=== PATIENT | male | born 1945 | race Caucasian/White ===

== ENCOUNTER 2019-04-01 00:53 | Inpatient (IN) | payer MEDICARE, OTHER ==
[2019-04-01 01:36] LABS: ADD MAN DIFF? NO
[2019-04-01] MEDS: SOD CHLORIDE 0.9% 500 ML IV (01:37)
[2019-04-01] MEDS: morphine 4 MG/ML VIAL IV (01:37)
[2019-04-01 01:38] LABS: BASOPHILS % 0.2 % (0.0-2.0); EOSINOPHILS # 0.2 10^3/ul (0.0-0.5); EOSINOPHILS % 1.2 % (0.0-7.0); HEMATOCRIT 46.5 % (42.0-52.0); HEMOGLOBIN 15.3 g/dl (14.0-18.0); LYMPHOCYTES # 1.2 10^3/ul (0.8-2.9); LYMPHOCYTES % 9.7 % (15.0-51.0); MEAN CORPUSCULAR HEMOGLOBIN 29.1 pg (29.0-33.0); MEAN CORPUSCULAR HGB CONC 32.9 g/dl (32.0-37.0); MEAN CORPUSCULAR VOLUME 88.4 fl (82.0-101.0); MEAN PLATELET VOLUME 10.1 fl (7.4-10.4); MONOCYTE # 0.5 10^3/ul (0.3-0.9); MONOCYTES % 4.2 % (0.0-11.0); NEUTROPHIL # 10.4 10^3/ul (1.6-7.5); NEUTROPHILS % 84.2 % (39.0-77.0); PLATELET COUNT 246 10^3/UL (140-415); RED BLOOD COUNT 5.26 10^6/ul (4.70-6.10); RED CELL DISTRIBUTION WIDTH 13.9 % (11.5-14.5)
[2019-04-01 01:38] LABS: WHITE BLOOD COUNT 12.3 10^3/ul (4.8-10.8)
[2019-04-01 01:58] LABS: INR 0.85; PROTIME 11.7 Sec (11.9-14.9); PT RATIO 0.9
[2019-04-01 02:16] LABS: ALANINE AMINOTRANSFERASE 33 IU/L (13-69); ALBUMIN 4.5 g/dl (3.3-4.9); ALBUMIN/GLOBULIN RATIO 1.12; ALKALINE PHOSPHATASE 109 IU/L (42-121); ANION GAP 10 (5-13); ASPARTATE AMINO TRANSFERASE 29 IU/L (15-46); BILIRUBIN,INDIRECT 0.9 mg/dl (0-1.1); BILIRUBIN,TOTAL 0.9 mg/dl (0.2-1.3); BLOOD UREA NITROGEN 25 mg/dl (7-20); CARBON DIOXIDE 29 mmol/L (21-31); CHLORIDE 102 mmol/L (97-110); CREATININE 1.84 mg/dl (0.61-1.24); GLUCOSE 144 mg/dl (70-220); LIPASE 74 U/L (23-300); POTASSIUM 4.5 mmol/L (3.5-5.1); SODIUM 141 mmol/L (135-144); TOTAL PROTEIN 8.5 g/dl (6.1-8.1)
[2019-04-01 02:28] LABS: TROPONIN-I < 0.012 ng/ml (0.000-0.120)
[2019-04-01] MEDS: METOCLOPRAMIDE 10 MG INJ IV (03:10)
[2019-04-01] MEDS ORDERED: ALBUTEROL/IPRATROPIUM (NEB) 3 ML AMP HHN (05:30)
[2019-04-01] MEDS ORDERED: NACL 0.9% 3 ML SYG IV (05:30)
[2019-04-01] MEDS ORDERED: ONDANSETRON 4 MG INJ IV (05:30)
[2019-04-01] MEDS: DEXTROSE 5%-0.45% NACL 1,000 ML IV (05:45)
[2019-04-01] MEDS: morphine 2 MG INJ IV (05:46)
[2019-04-01] MEDS: FAMOTIDINE 20 MG INJ IV (08:52)
[2019-04-01 09:24] LABS: ADD UMIC NO; UR ASCORBIC ACID NEGATIVE (NEGATIVE); UR BILIRUBIN (Dip) NEGATIVE (NEGATIVE); UR BLOOD (Dip) NEGATIVE (NEGATIVE); UR CLARITY CLEAR (CLEAR); UR COLOR YELLOW (YELLOW); UR GLUCOSE (Dip) NEGATIVE (NEGATIVE); UR KETONES (Dip) NEGATIVE (NEGATIVE); UR LEUKOCYTE ESTERASE (Dip) NEGATIVE Leu/ul (NEGATIVE); UR NITRITE (Dip) NEGATIVE (NEGATIVE); UR SPECIFIC GRAVITY (Dip) 1.015 (1.003-1.030); UR TOTAL PROTEIN (Dip) NEGATIVE (NEGATIVE); UR UROBILINOGEN (Dip) NEGATIVE (NEGATIVE)
[2019-04-01 10:42] LABS: LACTIC ACID 1.6 mmol/L (0.5-2.0)
[2019-04-01] MEDS: PANTOPRAZOLE 40 MG INJ IV ×2 (10:46→16:02)
[2019-04-01] MEDS: IOHEXOL 300MG/ML 150 ML BTL (13:36)
[2019-04-01] MEDS ORDERED: PANTOPRAZOLE IV 80 MG in SOD CHLORIDE 0.9% 100 ML IVPB (15:30)
[2019-04-01] MEDS: SOD CHLORIDE 0.9% 1,000 ML IV (16:02)
[2019-04-01] MEDS: PANTOPRAZOLE IV 80 MG in SOD CHLORIDE 0.9% 100 ML IV (16:30)
[2019-04-01 17:54] LABS: HEMATOCRIT 46.7 % (42.0-52.0); HEMOGLOBIN 15.3 g/dl (14.0-18.0)
[2019-04-01] MEDS ORDERED: FAMOTIDINE 20 MG INJ IV (21:00)
[2019-04-02] MEDS: LORAZEPAM 2 MG INJ IV (00:42)
[2019-04-02 01:18] LABS: HEMATOCRIT 43.7 % (42.0-52.0)
[2019-04-02] MEDS: SOD CHLORIDE 0.9% 1,000 ML IV ×3 (02:09→21:30)
[2019-04-02] MEDS: PANTOPRAZOLE 40 MG INJ IV ×2 (06:19→18:00)
[2019-04-02 08:48] LABS: ADD MAN DIFF? NO
[2019-04-02 08:56] LABS: BASOPHILS % 0.2 % (0.0-2.0); EOSINOPHILS # 0.1 10^3/ul (0.0-0.5); EOSINOPHILS % 1.6 % (0.0-7.0); HEMATOCRIT 45.7 % (42.0-52.0); HEMOGLOBIN 14.4 g/dl (14.0-18.0); LYMPHOCYTES # 2.1 10^3/ul (0.8-2.9); LYMPHOCYTES % 23.6 % (15.0-51.0); MEAN CORPUSCULAR HEMOGLOBIN 28.7 pg (29.0-33.0); MEAN CORPUSCULAR HGB CONC 31.5 g/dl (32.0-37.0); MEAN PLATELET VOLUME 10.4 fl (7.4-10.4); MONOCYTE # 0.8 10^3/ul (0.3-0.9); NEUTROPHIL # 5.8 10^3/ul (1.6-7.5); NEUTROPHILS % 65.3 % (39.0-77.0); PLATELET COUNT 251 10^3/UL (140-415); RED BLOOD COUNT 5.02 10^6/ul (4.70-6.10); RED CELL DISTRIBUTION WIDTH 14.3 % (11.5-14.5)
[2019-04-02 08:56] LABS: WHITE BLOOD COUNT 8.9 10^3/ul (4.8-10.8)
[2019-04-02 09:14] LABS: ALANINE AMINOTRANSFERASE 21 IU/L (13-69); ALBUMIN 3.9 g/dl (3.3-4.9); ALBUMIN/GLOBULIN RATIO 1.14; ALKALINE PHOSPHATASE 90 IU/L (42-121); ANION GAP 8 (5-13); ASPARTATE AMINO TRANSFERASE 20 IU/L (15-46); BILIRUBIN,INDIRECT 1.7 mg/dl (0-1.1); BILIRUBIN,TOTAL 1.7 mg/dl (0.2-1.3); BLOOD UREA NITROGEN 19 mg/dl (7-20); CARBON DIOXIDE 23 mmol/L (21-31); CHLORIDE 110 mmol/L (97-110); CREATININE 1.63 mg/dl (0.61-1.24); GLUCOSE 113 mg/dl (70-220); MAGNESIUM 2.3 mg/dl (1.7-2.5); PHOSPHORUS 2.8 mg/dl (2.5-4.9); POTASSIUM 4.2 mmol/L (3.5-5.1); SODIUM 141 mmol/L (135-144); TOTAL PROTEIN 7.3 g/dl (6.1-8.1)
[2019-04-02 22:42] LABS: PSA, FREE 2.2 ng/mL
[2019-04-03] MEDS: PANTOPRAZOLE 40 MG INJ IV ×2 (05:10→17:07)
[2019-04-03 05:33] LABS: ADD MAN DIFF? NO
[2019-04-03 05:41] LABS: WHITE BLOOD COUNT 7.3 10^3/ul (4.8-10.8)
[2019-04-03 05:41] LABS: BASOPHILS % 0.3 % (0.0-2.0); EOSINOPHILS # 0.2 10^3/ul (0.0-0.5); EOSINOPHILS % 2.6 % (0.0-7.0); HEMATOCRIT 39.4 % (42.0-52.0); HEMOGLOBIN 12.5 g/dl (14.0-18.0); LYMPHOCYTES # 1.6 10^3/ul (0.8-2.9); LYMPHOCYTES % 22.3 % (15.0-51.0); MEAN CORPUSCULAR HEMOGLOBIN 28.8 pg (29.0-33.0); MEAN CORPUSCULAR HGB CONC 31.7 g/dl (32.0-37.0); MEAN CORPUSCULAR VOLUME 90.8 fl (82.0-101.0); MEAN PLATELET VOLUME 10.2 fl (7.4-10.4); MONOCYTE # 0.7 10^3/ul (0.3-0.9); MONOCYTES % 10.2 % (0.0-11.0); NEUTROPHIL # 4.7 10^3/ul (1.6-7.5); NEUTROPHILS % 64.2 % (39.0-77.0); PLATELET COUNT 214 10^3/UL (140-415); RED BLOOD COUNT 4.34 10^6/ul (4.70-6.10); RED CELL DISTRIBUTION WIDTH 13.7 % (11.5-14.5)
[2019-04-03 06:48] LABS: ANION GAP 6 (5-13); BLOOD UREA NITROGEN 19 mg/dl (7-20); CALCIUM 8.8 mg/dl (8.4-10.2); CARBON DIOXIDE 25 mmol/L (21-31); CHLORIDE 108 mmol/L (97-110); CREATININE 1.39 mg/dl (0.61-1.24); GLUCOSE 83 mg/dl (70-220); MAGNESIUM 2.2 mg/dl (1.7-2.5); PHOSPHORUS 3.1 mg/dl (2.5-4.9); POTASSIUM 3.8 mmol/L (3.5-5.1); SODIUM 139 mmol/L (135-144)
[2019-04-03] MEDS: SOD CHLORIDE 0.9% 1,000 ML IV ×2 (07:30→17:30)
[2019-04-03] MEDS: hydrALAzine 20 MG INJ IV (20:55)
[2019-04-03] MEDS: LOSARTAN 50 MG TAB PO (21:56)
[2019-04-03] MEDS: LORAZEPAM 2 MG INJ IV (21:58)
[2019-04-04] MEDS: SOD CHLORIDE 0.9% 1,000 ML IV (03:30)
[2019-04-04 05:20] LABS: ADD MAN DIFF? NO
[2019-04-04 05:40] LABS: WHITE BLOOD COUNT 6.6 10^3/ul (4.8-10.8)
[2019-04-04 05:40] LABS: BASOPHILS % 0.3 % (0.0-2.0); EOSINOPHILS # 0.3 10^3/ul (0.0-0.5); EOSINOPHILS % 3.8 % (0.0-7.0); HEMATOCRIT 41.4 % (42.0-52.0); HEMOGLOBIN 13.6 g/dl (14.0-18.0); LYMPHOCYTES # 1.5 10^3/ul (0.8-2.9); LYMPHOCYTES % 22.3 % (15.0-51.0); MEAN CORPUSCULAR HEMOGLOBIN 29.2 pg (29.0-33.0); MEAN CORPUSCULAR HGB CONC 32.9 g/dl (32.0-37.0); MEAN CORPUSCULAR VOLUME 88.8 fl (82.0-101.0); MEAN PLATELET VOLUME 10.2 fl (7.4-10.4); MONOCYTE # 0.5 10^3/ul (0.3-0.9); MONOCYTES % 7.8 % (0.0-11.0); NEUTROPHIL # 4.3 10^3/ul (1.6-7.5); NEUTROPHILS % 65.3 % (39.0-77.0); PLATELET COUNT 232 10^3/UL (140-415); RED BLOOD COUNT 4.66 10^6/ul (4.70-6.10); RED CELL DISTRIBUTION WIDTH 13.3 % (11.5-14.5)
[2019-04-04] MEDS: PANTOPRAZOLE 40 MG INJ IV (05:47)
[2019-04-04 06:03] LABS: PHOSPHORUS 3.5 mg/dl (2.5-4.9)
[2019-04-04 06:03] LABS: MAGNESIUM 2.1 mg/dl (1.7-2.5)
[2019-04-04 06:12] LABS: ANION GAP 8 (5-13); BLOOD UREA NITROGEN 16 mg/dl (7-20); CALCIUM 9.5 mg/dl (8.4-10.2); CARBON DIOXIDE 25 mmol/L (21-31); CHLORIDE 107 mmol/L (97-110); CREATININE 1.32 mg/dl (0.61-1.24); GLUCOSE 90 mg/dl (70-220); POTASSIUM 4.1 mmol/L (3.5-5.1); SODIUM 140 mmol/L (135-144)
[2019-04-04] MEDS: AMLODIPINE 2.5 MG TAB PO (09:00)
[2019-04-04] MEDS: IMIPRAMINE 25 MG TAB PO (09:00)
[2019-04-04] MEDS: clonAZEPAM 0.5 MG TAB PO (09:00)
[2019-04-04] MEDS: FOLIC ACID 1 MG TAB PO (09:00)
[2019-04-04] MEDS: LOSARTAN 50 MG TAB PO (09:12)
== END 2019-04-04 11:25 | disposition home or self-care (01) | DRG 389 ==
LOC: E/R 00:53 → MS1 02:25
DX: K56.609 Unspecified intestinal obstruction, unspecified as to partial versus complete obstruction (principal); N17.9 Acute kidney failure, unspecified; N40.0 Benign prostatic hyperplasia without lower urinary tract symptoms; F32.9 Major depressive disorder, single episode, unspecified; I12.9 Hypertensive chronic kidney disease with stage 1 through stage 4 chronic kidney disease, or unspecified chronic kidney disease; N18.9 Chronic kidney disease, unspecified; R11.10 Vomiting, unspecified
CPT/HCPCS: 71045; 74176; 74250; 80048; 80053; 81003; 83605; 83690; 83735; 84100; 84153; 84154; 84484; 85014; 85018; 85025; 85610; 85730; 93005